=== PATIENT | female | born 1945 | race Caucasian/White ===

== ENCOUNTER 2022-06-10 08:24 | Emergency (ER) | payer MEDICARE, OTHER ==
[2022-06-10 09:58] LABS: BASOPHIL 0.7 % (0-2); BILIRUBIN NEGATIVE (NEGATIVE); BLOOD NEGATIVE Ery/uL (NEGATIVE); CLARITY CLEAR (CLEAR); COLOR YELLOW (YELLOW); EOSINOPHIL 1.1 % (0-7); GLUCOSE (U) NORMAL (NORMAL); HGB 11.6 g/dl (12.5-16.0); LEUKOCYTES NEGATIVE Leu/uL (NEGATIVE); LYMPHOCYTE 10.8 % (15-48); MCH 32.6 pg (25.0-31.0); MCHC 32.2 g/dL (32.0-36.0); MCV 101.1 fL (78.0-100.0); MONOCYTE 8.5 % (0-12); MPV 9.2 fL (6.0-9.5); NEUTROPHIL 77.8 % (41-80); NITRITE NEGATIVE (NEGATIVE); NRBC 0.2; PLT 213 K/uL (150-400); PROTEIN NEGATIVE (NEGATIVE); RBC 3.56 M/uL (4.20-5.40); RDW 14.9 % (11.5-14.0); UROBILINOGEN 0.2 mg/dL (0.2-1.0); WBC 11.6 K/uL (4.0-10.5)
[2022-06-10 10:12] LABS: ALBUMIN 3.4 g/dL (3.4-5.0); ALKALINE PHOSHATASE 104 U/L (46-116); ALT 29 U/L (14-59); AST 30 U/L (15-37); BILIRUBIN - TOTAL 0.5 mg/dL (0.2-1.0); BUN 8 mg/dL (7-18); BUN/CREAT RATIO (CALC) 12.3 RATIO; CHLORIDE 102 mmol/L (98-107); CO2 (BICARBONATE) 28 mmol/L (21-32); CREATININE 0.65 mg/dL (0.51-0.95); GLOBULIN (CALCULATION) 3.5 g/dL; GLUCOSE 119 mg/dL (74-106); POTASSIUM 4.3 mmol/L (3.5-5.1); TOTAL PROTEIN 6.9 g/dL (6.4-8.2)
[2022-06-10 10:14] LABS: C-REACTIVE PROTEIN < 0.20 mg/dL (<=0.90)
[2022-06-10] MEDS ORDERED: DILAUDID2 MG PO (10:31)
[2022-06-11] MEDS ORDERED: PERCOCET 7.5/321 TAB PO (19:07)
== END 2022-06-10 10:54 | disposition home or self-care (01) ==
LOC: FER 08:24
PROVIDERS: Emergency Medicine
DX: M25.562 Pain in left knee (principal); M25.561 Pain in right knee; M79.605 Pain in left leg; M79.604 Pain in right leg; M79.602 Pain in left arm; M79.601 Pain in right arm; T45.1X5A Adverse effect of antineoplastic and immunosuppressive drugs, initial encounter; C50.912 Malignant neoplasm of unspecified site of left female breast; R42 Dizziness and giddiness; I10 Essential (primary) hypertension; F17.200 Nicotine dependence, unspecified, uncomplicated; Z88.5 Allergy status to narcotic agent
CPT/HCPCS: 36415; 71045; 80053; 81003; 85025; 86140; 87088; 93005; J1170; J7040

== ENCOUNTER 2022-06-11 17:49 | Emergency (ER) | payer MEDICARE, OTHER ==
[~2022-06-11 17:49] MED LIST: DILAUDID2 MG PO
[2022-06-11] MEDS ORDERED: PERCOCET 7.5/321 TAB PO (19:07)
== END 2022-06-11 19:10 | disposition home or self-care (01) ==
LOC: FER 17:49
DX: M79.605 Pain in left leg (principal); M79.604 Pain in right leg; G89.29 Other chronic pain; I10 Essential (primary) hypertension
CPT/HCPCS: J2270

== ENCOUNTER 2022-06-14 04:06 | Emergency (ER) | payer MEDICARE, OTHER ==
[~2022-06-14 04:06] MED LIST changes: +PERCOCET 7.5/321 TAB PO
[2022-06-14] MEDS ORDERED: OXY-IR 5MG5 MG PO (05:14)
== END 2022-06-14 06:19 | disposition home or self-care (01) ==
LOC: FER 04:06
DX: G89.3 Neoplasm related pain (acute) (chronic) (principal); C50.919 Malignant neoplasm of unspecified site of unspecified female breast; F17.200 Nicotine dependence, unspecified, uncomplicated; Z88.5 Allergy status to narcotic agent
CPT/HCPCS: J1170